=== PATIENT | male | born 1990 | race American Indian/Alaskan Native ===

== ENCOUNTER 2018-05-05 19:34 | Emergency (ER) | payer BC ==
[2018-05-05 19:48] VITALS: RESP 20
--- NOTE | 2018-05-05 21:18 | C.PDOC ---
History Of Present Illness 28 year old male presents to the emergency department with complaints of pain to his right big toe after a heavy plate fell on his foot at work earlier today , associated with tingling to the affected area. Patient states he took Tylenol prior to arrival and denies any weakness or numbness. Time Seen by Provider: 05/05/18 19:48 Chief Complaint (Nursing): Lower Extremity Problem/Injury History Per: Patient History/Exam Limitations: no limitations Onset/Duration Of Symptoms: Hrs Current Symptoms Are (Timing): Still Present Past Medical History Reviewed: Historical Data, Nursing Documentation, Vital Signs Vital Signs: Last Vital Signs Temp 98 F 05/05/18 19:41 Pulse 100 H 05/05/18 19:41 Resp 20 05/05/18 19:41 BP 136/76 05/05/18 19:41 Pulse Ox 99 05/05/18 21:25 Family History: States: No Known Family Hx - Social History Hx Tobacco Use: Yes Hx Alcohol Use: No Hx Substance Use: No - Immunization History Hx Tetanus Toxoid Vaccination: No Hx Influenza Vaccination: No Hx Pneumococcal Vaccination: No Review Of Systems Except As Marked, All Systems Reviewed And Found Negative. Musculoskeletal: Positive for: Other (R big toe pain, associated with tingling) Skin: Positive for: Other (abrasion) Neurological: Negative for: Weakness, Numbness Physical Exam - Physical Exam Appears: Non-toxic, No Acute Distress Skin: Warm, Dry Head: Atraumatic, Normacephalic Eye(s): bilateral: Normal Inspection Extremity: No Normal ROM (limited to Rt great toe but remainder of Rt foot normal), Tenderness (Moderate to R big toe), Capillary Refill (less than 2 seconds), No Deformity, Swelling (Mild swelling to R big toe), Other (Small abrasion to distal aspect of R big toe) Pulses: Right Dorsalis Pedis: Normal Neurological/Psych: Oriented x3, Normal Motor, Normal Sensation Gait: Steady (with a mild limp due to pain) ED Course And Treatment O2 Sat by Pulse Oximetry: 99 (RA) Pulse Ox Interpretation: Normal Progress Note: Right foot x-ray ordered. Motrin administered. X-ray shows no fracture or dislocation. Abrasion will be cleaned with bacitracin and dressed with gauze. Pt placed in hard shoe for support. Advised patient to follow up with an orthopedist for further evaluation. Reevaluation Time: 21:35 Reassessment Condition: Improved Disposition Counseled Patient/Family Regarding: Diagnosis, Need For Followup - Disposition Referrals: Jonny Barney MD, PhD [Staff Provider] - Disposition: HOME/ ROUTINE Disposition Time: 21:36 Condition: STABLE Additional Instructions: Please follow up with PMD/ for podiatry referral as needed Take motrin for pain Return to ER if worse Prescriptions: Ibuprofen [Motrin] 600 mg PO Q6H #20 tab Instructions: Contusion (DC) Forms: [employer] (Hungarian) - Clinical Impression Clinical Impression: Contusion of toe of right foot - PA / [employer] / Resident Statement MD/DO has reviewed & agrees with the documentation as recorded. - Scribe Statement The provider has reviewed the documentation as recorded by the Scribkillian Galaviz All medical record entries made by the Jonathanibkillian were at my direction and personally dictated by me. I have reviewed the chart and agree that the record accurately reflects my personal performance of the history, physical exam, medical decision making, and the department course for this patient. I have also personally directed, reviewed, and agree with the discharge instructions and disposition.
[2018-05-05 22:05] VITALS: BP 128/70; PULSE 98; TEMP 98.3
[2018-05-06 00:06] VITALS: O2SAT 99
--- NOTE | 2018-05-06 09:23 | RAD ---
PROCEDURE: Radiographs of the right great toe. TECHNIQUE:: AP radiograph of the right foot, with oblique and lateral view of the right great toe. COMPARISON: None. FINDINGS: BONES: No acute fracture or destructive bony lesion identified. Small exostosis seen related to the base of the distal phalanx right great toe medially. JOINTS: Mild degenerative changes seen at the 1st metatarsophalangeal joint. SOFT TISSUES: Diffuse soft tissue edema seen surrounding the mid to distal great toe without radiodense retained foreign body or emphysema soft tissue change. OTHER FINDINGS: None. IMPRESSION: No acute fracture, subluxation or dislocation. No destructive bony lesion appreciable. Diffuse soft tissue edema is seen related to the mid to distal great toe which is otherwise unremarkable. Limited degenerative change 1st metatarsal phalangeal joint.
== END 2018-05-05 21:55 | disposition home or self-care (01) ==
LOC: C.ER 19:34
DX: S90.31XA Contusion of right foot, initial encounter (principal); W20.8XXA Other cause of strike by thrown, projected or falling object, initial encounter; Y99.0 Civilian activity done for income or pay; Z72.0 Tobacco use

== ENCOUNTER 2018-12-23 09:21 | Emergency (ER) | payer BC ==
[2018-12-23 09:24] VITALS: BP 132/85; PULSE 82; RESP 20; TEMP 98.2; O2SAT 99
--- NOTE | 2018-12-23 10:06 | C.PDOC ---
History Of Present Illness 28 y/o male presents to ED complaining of left-sided chest pain since yesterday, exacerbated by movement of his arm or with deep breathing. Patient describes the pain to be sharp. He denies any SOB, fever, nausea, vomiting, palpitations, diaphoresis, or other complaints. Time Seen by Provider: 12/23/18 09:30 Chief Complaint (Nursing): Chest Pain History Per: Patient History/Exam Limitations: no limitations Onset/Duration Of Symptoms: Days Current Symptoms Are (Timing): Still Present Past Medical History Reviewed: Historical Data, Nursing Documentation, Vital Signs Vital Signs: Last Vital Signs Temp 98.2 F 12/23/18 09:23 Pulse 82 12/23/18 09:23 Resp 20 12/23/18 09:23 BP 132/85 12/23/18 09:23 Pulse Ox 99 12/23/18 09:23 Family History: States: No Known Family Hx - Social History Hx Tobacco Use: Yes Hx Alcohol Use: No Hx Substance Use: No - Immunization History Hx Tetanus Toxoid Vaccination: No Hx Influenza Vaccination: No Hx Pneumococcal Vaccination: No Review Of Systems Except As Marked, All Systems Reviewed And Found Negative. Constitutional: Negative for: Fever, Chills, Sweats Cardiovascular: Positive for: Chest Pain (left-sided). Negative for: Palpitations Respiratory: Negative for: Cough, Shortness of Breath Gastrointestinal: Negative for: Nausea, Vomiting Neurological: Negative for: Dizziness Physical Exam - Physical Exam Appears: Non-toxic, No Acute Distress Skin: Warm, Dry Head: Atraumatic, Normacephalic Eye(s): bilateral: Normal Inspection Oral Mucosa: Moist Neck: Supple Chest: Tenderness (reproducible tenderness to left-sided chest wall) Cardiovascular: Rhythm Regular, No Murmur Respiratory: Normal Breath Sounds, No Rales, No Rhonchi, No Wheezing Gastrointestinal/Abdominal: Soft, No Tenderness Extremity: Bilateral: Atraumatic, Normal ROM Neurological/Psych: Oriented x3, Normal Speech, Normal Cognition ED Course And Treatment ECG: Interpreted By Me, Viewed By Me ECG Rhythm: Sinus Rhythm Interpretation Of ECG: No ST elevation. QT normal. Rate From EC O2 Sat by Pulse Oximetry: 99 (RA) Pulse Ox Interpretation: Normal Medical Decision Making Medical Decision Making: Plan: --EKG --Chest XR --Ibuprofen PO Disposition Counseled Patient/Family Regarding: Studies Performed, Diagnosis, Need For Followup, Rx Given - Disposition Referrals: Kavon Whitaker MD [Staff Provider] - Disposition: HOME/ ROUTINE Disposition Time: 10:04 Condition: STABLE Prescriptions: Ibuprofen [Motrin] 600 mg PO TID #15 tab Instructions: Costochondritis Forms: [facility] (Venezuelan), Work Excuse - POA Present On Arrival: None - Clinical Impression Clinical Impression: Chest wall pain - Scribe Statement The provider has reviewed the documentation as recorded by the Kay Galaviz Provider Attestation: All medical record entries made by the Jonathanibkillian were at my direction and personally dictated by me. I have reviewed the chart and agree that the record accurately reflects my personal performance of the history, physical exam, medical decision making, and the department course for this patient. I have also personally directed, reviewed, and agree with the discharge instructions and disposition.
--- NOTE | 2018-12-23 10:49 | RAD ---
Chest x-ray two views HISTORY: Chest pain. COMPARISON: None available. FINDINGS: No focal infiltrate or effusion. Small nodular density projecting over the right lung base laterally may represent confluence of shadows with ribs and vessels. Heart size within normal limits. Impression: No focal infiltrate or effusion. Small nodular density projecting over the right lung base laterally may represent confluence of shadows with ribs and vessels.
--- NOTE | 2018-12-24 15:13 | CARD ---
APPROVED REPORT Date of service: 12/23/2018 EKG Measurement Heart [id number] <Conclusion> Normal sinus rhythm Normal ECG
== END 2018-12-23 10:13 | disposition home or self-care (01) ==
LOC: C.ER 09:21
DX: R07.89 Other chest pain (principal)

== ENCOUNTER 2019-01-07 09:25 | Emergency (ER) | payer BC ==
[2019-01-07 09:48] VITALS: BP 143/73; PULSE 88; RESP 18; TEMP 98.1; O2SAT 100
--- NOTE | 2019-01-07 10:03 | C.PDOC ---
History Of Present Illness 28 y/o male presents to the ER complaining of right sided trapezius pain which has been present for the past 4 days. Patient states that he has been taking Motrin 800 mg occasionally. Patient reports that the pain became worse when he applied heating pads to the area.Denies having direct trauma, fever,chills, headache, and visual changes. Time Seen by Provider: 01/07/19 09:59 Chief Complaint (Nursing): Back Pain History Per: Patient History/Exam Limitations: no limitations Onset/Duration Of Symptoms: Days Current Symptoms Are (Timing): Still Present Severity: Moderate Past Medical History Reviewed: Historical Data, Nursing Documentation, Vital Signs Vital Signs: Last Vital Signs Temp 98.1 F 01/07/19 09:47 Pulse 88 01/07/19 09:47 Resp 18 01/07/19 09:47 BP 143/73 01/07/19 09:47 Pulse Ox 100 01/07/19 09:47 - Medical History PMH: No Chronic Diseases Surgical History: No Surg Hx Family History: States: No Known Family Hx - Social History Hx Tobacco Use: Yes Hx Alcohol Use: Yes Hx Substance Use: No - Immunization History Hx Tetanus Toxoid Vaccination: No Hx Influenza Vaccination: No Hx Pneumococcal Vaccination: No Review Of Systems Except As Marked, All Systems Reviewed And Found Negative. Constitutional: Negative for: Fever, Chills Musculoskeletal: Positive for: Other (right sided trapezius pain) Neurological: Negative for: Headache Physical Exam - Physical Exam Appears: Non-toxic, No Acute Distress Skin: Normal Color, Warm, Dry Head: Atraumatic, Normacephalic Eye(s): bilateral: Normal Inspection Nose: Normal Oral Mucosa: Moist Neck: No Midline Cervical Tenderness, Supple, Other (right sided trapezius and cervical deltoid tenderness) Chest: Symmetrical Cardiovascular: Rhythm Regular Respiratory: Normal Breath Sounds, No Rales, No Rhonchi, No Wheezing Back: Other (tenderness to right upper thoracic region) Neurological/Psych: Oriented x3, Normal Speech ED Course And Treatment O2 Sat by Pulse Oximetry: 100 (RA) Pulse Ox Interpretation: Normal Medical Decision Making Medical Decision Making: R trapezius strain/sprain ice/NSAIDS Disposition Doctor Will See Patient In The: Office Counseled Patient/Family Regarding: Studies Performed, Diagnosis - Disposition Referrals: Kavon Whitaker MD [Staff Provider] - Disposition: HOME/ ROUTINE Disposition Time: 10:03 Condition: GOOD Additional Instructions: ice packs 1/2 hour per hour, nothing hot motrin/Advil 400-600 mg every 6 hours NO hot therapies! No hot showers for 3 days Instructions: Cervical Sprain (ED) Forms: [facility] (Tuvaluan) - Clinical Impression Clinical Impression: Trapezius strain - Scribe Statement The provider has reviewed the documentation as recorded by the Kay Menjivar Provider Attestation: All medical record entries made by the Kay were at my direction and personally dictated by me. I have reviewed the chart and agree that the record accurately reflects my personal performance of the history, physical exam, medical decision making, and the department course for this patient. I have also personally directed, reviewed, and agree with the discharge instructions and disposition.
== END 2019-01-07 10:06 | disposition home or self-care (01) ==
LOC: C.ER 09:25
DX: S46.911A Strain of unspecified muscle, fascia and tendon at shoulder and upper arm level, right arm, initial encounter (principal); X58.XXXA Exposure to other specified factors, initial encounter; Z72.0 Tobacco use